=== PATIENT | male | born 1995 | race Caucasian/White ===

== ENCOUNTER 2016-03-14 17:09 | Emergency (ER) | payer OTHER ==
[2016-03-14 17:19] VITALS: BP 134/67
--- NOTE | 2016-03-14 17:57 | ERNOTE ---
Lower Extremity HPI - Narrative Date of Service: 03/14/16 - General Lower Extremities Pain: knee: right Time Seen by Provider: 03/14/16 17:35 Source: patient, RN notes reviewed Exam Limitations: no limitations - Immun/Allergies/Home Medications Immunizations: IMMUNIZATION HX Immunizations Up to Date Yes History of Influenza Vaccine Yes Hx Pneumococcal Vaccination No Allergies/Adverse Reactions: Allergies Allergy/AdvReac Type Severity Reaction Status Date / Time Penicillins AdvReac Nausea Verified 03/14/16 17:18 Sulfa (Sulfonamide AdvReac Verified 03/14/16 17:18 Antibiotics) Home Medications: HOME MEDICATIONS valACYclovir HCL [Valtrex] 500 mg PO DAILY #30 tab 07/19/14 [Last Taken Unknown] - History of Present Illness Narrative: Nikolai is a 20 year old male who presents to the ED for concerns about his wound after a knee surgery on 03/01. He had his right meniscus removed by Dr. Bond at [facility]. He noticed increased redness surrounding the suture on the medial aspect of the knee 3 days ago. He denies any drainage or fever. He has not had to take anything for pain. He contacted his surgeon's answering service and was directed to go to the ER. Review of Systems - Review of Systems Constitutional: Absent: fever, chills, malaise EYE: Present: no symptoms reported ENT: Present: no symptoms reported Respiratory: Present: no symptoms reported Cardiology: Present: no symptoms reported Gastrointestinal/Abdominal: Absent: nausea, vomiting Genitourinary: Present: no symptoms reported Musculoskeletal: Present: joint pain. Absent: joint swelling Skin: Present: change in color. Absent: lesions, lumps Neurological: Absent: weakness, numbness, tingling Endocrine: Present: no symptoms reported Hematologic/Lymphatic: Present: no symptoms reported Psych: Present: no symptoms reported - Patient's Past Medical History Patient History - Medical: No pertinent hx Patient History - Cardiac/Respiratory: No pertinent hx Patient History - Cancer: No Hx of Cancer Patient History - Surgical Procedures: Other - Knee surgery - Social History Living Situations: parents Smoking Status: Never smoker Have you smoked in the past 12 months: No Alcohol Use: occasionally Drug Use: none Physical Exam - Physical Exam General Appearance: Present: wd/wn, alert, no apparent distress Respiratory: Present: no respiratory distress, normal breath sounds, no accessory muscle use, lungs clear Cardiovascular/Chest: Present: regular rate, rhythm, no murmur Extremity Exam: Present: no edema, normal range of motion, other - no effusion, warmth, or tenderness to right knee - however mild erythema surrounding suture at medial aspect of knee, wound is well approximated and no drainage is present. Absent: joint redness, joint swelling Neurological Exam: Present: alert, oriented, normal mood/affect, no motor/ sensory deficits Skin Exam: Present: normal color, warm/dry ED Progress - Vital Signs Patient's Vital Signs:: I have reviewed the patient's vital signs. Vital Signs: Vital Signs 03/14/16 17:15 Temperature 35.8 C L Pulse Rate 55 L Respiratory 14 Rate Blood Pressure 134/67 O2 Sat by Pulse 100 Oximetry - Progress/Reassessment Chief Complaint: Lower Extremity Pain/ Injury Progress:: Unchanged Departure Clinical Impression: Suture reaction Qualifiers: Encounter type: initial encounter Qualified Code(s): T81.89XA - Other complications of procedures, not elsewhere classified, initial encounter - Departure Disposition: Home Follow Up Needed Condition: Good Additional Instructions: Moisturize skin around suture with Vaseline or Aquaphor Contact your doctor tomorrow if worse, otherwise follow up on Tuesday as scheduled Referrals: Charli Bond DO [Non Staff Physicians] -
== END 2016-03-14 17:49 | disposition home or self-care (01) ==
LOC: ER 17:09
DX: T81.89XA Other complications of procedures, not elsewhere classified, initial encounter (principal)